=== PATIENT | male | born 1945 | race Caucasian/White ===

== ENCOUNTER 2016-09-04 14:01 | Inpatient (IN) | payer MEDICARE ==
[~2016-09-04] VITALS: Ht 180.3 cm; Wt 112.4 kg
[2016-09-07] MEDS ORDERED: ENAL20TA PO (09:44)
[2016-09-07] MEDS ORDERED: HYDR12.57 PO (09:46)
[2016-09-07] MEDS ORDERED: PRAD150C PO (14:38)
[2016-09-07] MEDS ORDERED: DILT120C7 PO (14:40)
[2016-09-23] MEDS ORDERED: GENTAMICIN SULFATE 80 MG/2 ML VIAL ONE (06:39)
[2016-09-23] MEDS ORDERED: VANCOMYCIN 1000 MG/NS 250 ML (for <70 kg) IV SCH ×2 (06:45)
[2016-09-23] MEDS ORDERED: INSULIN HUMAN REGULAR 1,000 UNITS/10 ML VIAL SQ PRN (06:45)
[2016-09-23] MEDS ORDERED: METOPROLOL TARTRATE 25 MG TAB PO PRN (06:45)
[2016-09-23] MEDS: POVIDONE IODINE 7.5% SCRUB 118 ML BOTTLE TOP SCH (06:45)
[2016-09-23 07:00] VITALS: BP 118/71; PULSE 66; RESP 16; TEMP 97.8; O2SAT 96
--- NOTE | 2016-09-23 07:01 | HHI.DCPOC ---
Discharge Care Plan Diagnosis: (1) Primary localized osteoarthrosis, lower leg (2) Status post total knee replacement, left Your Health Problems Are: Difficulty with ADL Goals to Promote Your Health * To prevent worsening of your condition and complications * To maintain your health at the optimal level Directions to Meet Your Goals Take your medications as prescribed Follow your dietary instruction Follow activity as directed Keep your appointments as scheduled Take your immunizations and boosters as scheduled If your symptoms worsen call your PCP, if no PCP go to Urgent Care Center or Emergency Room Smoking is Dangerous to Your Health. Avoid second hand smoke Call the 24-hour hour crisis hotline for domestic abuse at Reilly Pantoja Sep 23, 2016 07:00
--- NOTE | 2016-09-23 07:01 | HHI.FF ---
Face to Face Verification Diagnosis: (1) Primary localized osteoarthrosis, lower leg (2) Status post total knee replacement, left Physical Therapy Gait training, Transfer training, bed to chair Knee: Total knee Left LE Weight Bearing: WB as tolerated Left LE Range of Motion: Active ROM Nursing Nursing: Royce teaching, Dressing changes Dressing Changes: Daily dressing change I have seen patient Donavan Abdi on 09/23/16. My clinical findings support the need for the requested home health care services because: Limited ability to care for self High risk of falls I certify that my clinical findings support that this patient is homebound because: Post-op weakness Unsteady gait/balance Reilly Pantoja Sep 23, 2016 07:01
[2016-09-23] MEDS ORDERED: COMMODE 3-IN-11 MIS (07:03)
[2016-09-23] MEDS ORDERED: CPMMACHINE (07:03)
[2016-09-23] MEDS ORDERED: WALKER WHEELS/F1 MIS (07:03)
[2016-09-23] MEDS ORDERED: DEXAMETHASONE SOD PHOS 20 MG/5 ML VIAL IV SCH (07:30)
[2016-09-23] MEDS ORDERED: ceFAZolin 2 GM PREMIX 50 ML IV SCH (07:30)
[2016-09-23] MEDS ORDERED: MIDAZOLAM HCL 5 MG/5 ML VIAL ONE (07:43)
[2016-09-23] MEDS ORDERED: FAMOTIDINE 20 MG/2 ML VIAL ONE (07:43)
[2016-09-23] MEDS ORDERED: ROPIVACAINE PERI-ARTICULAR INJECTION. PERIART SCH ×5 (08:30)
[2016-09-23] MEDS ORDERED: LACTATED RINGER'S 1000 ML IV SCH (08:30)
[2016-09-23] MEDS ORDERED: SODIUM CHLORID 0.9% 500 ML IV SCH (08:30)
[2016-09-23] MEDS ORDERED: SODIUM CHLORIDE 0.9% IV SCH ×2 (08:30→11:15)
[2016-09-23] MEDS ORDERED: TRANEXAMIC ACID IV SCH ×2 (08:30→11:15)
[2016-09-23] MEDS ORDERED: HYDROCHLOROTHIAZIDE 25 MG TAB PO PRN (10:00)
--- NOTE | 2016-09-23 10:05 | PD.OP ---
cc: Elan Barbour MD Operative Report Date of Surgery: Sep 23, 2016 Preoperative Diagnosis: Left knee severe osteoarthritis Postoperative Diagnosis: Same Procedure: Left total knee arthroplasty Anesthesia: Gen. and adductor canal block Surgeon: Elan Barbour Lusterer(s): GARCIA Baxter The surgical procedure was assisted by my Advanced Registered Nurse Practitioner. My OIL LABORATORY ANALYST presence was necessary throughout this case for the manipulation and positioning of the surgical extremity. My OIL LABORATORY ANALYST was assisting me throughout the duration of this procedure. The skill set of an Advance Registered Nurse Practitioner was medically necessary to complete this procedure. During the surgical case, the regional vice president surgical sales was working at the back table and the Advance Registered Nurse Practitioner was directly assisting me. Operation and Findings: IMPLANTS: DePuy Attune: Patella: size 38. Femur, posterior stabilized size 8. Tibia, rotating platform size 7. Tibial insert, rotating platform, posterior stabilized size 5 mm thickness. ESTIMATED BLOOD LOSS: 150 cc TOURNIQUET TIME: 42 minutes at 250 mmHg pressure. JUSTIFICATION FOR PROCEDURE: The patient has end-stage osteoarthritis to the knee. There is an attached conservative measures pathway form in the chart that describes the nonoperative measures that were undertaken prior to consideration of surgical management. The patient understood the risks and benefits of surgical management. See my office notes for further details PROCEDURE: The patient was brought back to the operative theatre. Adequate anesthesia was obtained. The patient received intravenous vancomycin and Ancef. The lower extremity was prepped and draped in the usual sterile fashion.The leg was exsanguinated, the tourniquet was raised. A standard anterior incision was performed followed by medial parapatellar arthrotomy was performed. End-stage arthritis was identified. Osteotomy of the patella was performed. We drilled holes for the patella. We trialed the patella component. We placed an intramedullary guide into the distal femur. We ultimately resected 12 mm off of the distal femur in 5 degrees of valgus. The remnants of the ACL and PCL were resected. Osteotomy of the proximal tibia was performed, resecting 5 mm off of the medial side. This was done with 3 degrees of posterior slope using an extramedullary guide. The distal end of the guide was placed in the mid aspect of the ankle. The femur was sized, and four chamfer cuts were completed in 3 of external rotation. We then cut the central box in the distal femur to replace the PCL. We resected the remnants of the menisci and removed osteophytes off of the femur and tibia. We then trialed the knee. We punched the tibia for the keel, and then used standard technique to cement in components. Excess cement was removed. We trialed the knee again and the final polyethylene thickness was chosen to provide extension to 0 degrees, and flexion of 140 degrees to gravity. The ligaments were appropriately balanced. Lateral release was necessary to obtain excellent patellofemoral tracking. The tourniquet was released and adequate hemostasis was obtained. An intra- articular injection of a ropivacaine cocktail was injected. The posterior knee was inspected for excess cement, which was removed. The final polyethylene was put into position after thorough irrigation. We then closed deep fascia with a #2 Stratafix followed by skin with 2-0 Vicryl followed by nelly. Postop plan is to weight-bear as tolerated. DVT prophylaxis will be performed with Afua, CHRISTOPHER rivas, early mobilization, and Lovenox followed by aspirin. Elan Barbour MD Sep 23, 2016 10:05
[2016-09-23] MEDS ORDERED: ENOX40P SQ ×2 (10:09→10:17)
[2016-09-23] MEDS ORDERED: NORC5TAB PO (10:09)
[2016-09-23] MEDS ORDERED: ASPI325T PO (10:09)
[2016-09-23] MEDS ORDERED: ZOLPIDEM TARTRATE 5 MG TAB PO PRN (10:15)
[2016-09-23] MEDS ORDERED: MORPHINE SULFATE 4 MG/ML INJ IV PUSH PRN (10:15)
[2016-09-23] MEDS ORDERED: NALOXONE HCL 0.4 MG/ML AMP IV PRN (10:15)
[2016-09-23] MEDS ORDERED: diphenhydrAMINE HCL 50 MG/ML VIAL IV PRN (10:15)
[2016-09-23] MEDS ORDERED: BISACODYL 10 MG SUPP PR PRN (10:15)
[2016-09-23] MEDS ORDERED: ACETAMINOPHEN/HYDROcodone 325 MG/5 MG TAB PO PRN (10:15)
[2016-09-23] MEDS ORDERED: SODIUM CHLORIDE 0.9% FLUSH 5 ML FLUSH IVF PRN (10:15)
[2016-09-23] MEDS ORDERED: ALUMINUM/MAGNESIUM/SIMETH 30 ML CUP PO PRN (10:15)
[2016-09-23] MEDS ORDERED: MAGNESIUM HYDROXIDE SUSP 30 ML CUP PO SCH (10:15)
[2016-09-23] MEDS ORDERED: ONDANSETRON HCL 4 MG/2 ML VIAL IVP PRN (10:15)
[2016-09-23] MEDS ORDERED: DO NOT ADM ANY ANTICOAGULANT DRUGS XX PRN (10:25)
[2016-09-23] MEDS ORDERED: Post-op Orders (for Pharmacy) MISC XX ONE (10:25)
[2016-09-23] MEDS ORDERED: fentaNYL CITRATE 250 MCG/5 ML AMP ONE (10:34)
[2016-09-23] MEDS ORDERED: *morphine SULFATE 8 MG/ML PERIprocedure ONLY ONE ×2 (10:40→11:13)
[2016-09-23] MEDS: SODIUM CHLOR 0.9% 1000 ML INJ 1,000 ML IV SCH ×2 (10:50→20:01)
--- NOTE | 2016-09-23 11:26 | RADRPT ---
EXAM DATE/TIME: 09/23/2016 10:39 [facility] COMPARISON: No previous studies available for comparison. INDICATIONS : Post op left knee surgery. MEDICAL HISTORY : None. SURGICAL HISTORY : None. ENCOUNTER: Initial ACUITY: 1 day PAIN SCORE: Non-responsive. LOCATION: Left knee. FINDINGS: AP and crosstable lateral views of the left knee were obtained and demonstrate the patient is status post hemiarthroplasty. The femoral and tibial components are intact and in normal alignment. There ar e postoperative changes involving the patella. There is anterior soft tissue swelling and gas with ov erlying surgical skin nelly. CONCLUSION: Expected postoperative changes status post arthroplasty. Chele Costello MD on September 23, 2016 at 11:23 Board Certified Radiologist. This report was verified electronically.
[2016-09-23] MEDS ORDERED: NEOSTIGMINE 3 MG/3 ML SYR IV ONE (12:00)
[2016-09-23] MEDS ORDERED: LACTATED RINGER'S 1000 ML INJ 1,000 ML IV ONE (12:00)
[2016-09-23] MEDS ORDERED: PROPOFOL 200 MG/20 ML AMP IV ONE (12:00)
[2016-09-23] MEDS ORDERED: PHENYLEPH/NS 1000 MCG/10 ML SYR IV ONE (12:00)
[2016-09-23] MEDS ORDERED: ONDANSETRON HCL 4 MG/2 ML VIAL IV PUSH ONE (12:00)
[2016-09-23] MEDS ORDERED: ePHEDrine/NS 25 MG/5 ML SYR IV ONE (12:00)
[2016-09-23] MEDS ORDERED: BUPIVACAINE LIPOSOME PF 1.3% 20 ML VIAL ONE (12:04)
--- NOTE | 2016-09-23 16:40 | MB ---
cc: RONNELL MUNIZ,JAWJEMMA DATE OF CONSULTATION: 09/23/[address] Muniz. REASON FOR CONSULTATION Ulceration, medical management postoperatively. HISTORY OF PRESENT ILLNESS The patient is a very pleasant 71-year male with a significant past medical history of atrial fibrillation in the past, history of post ablation in April of 2016. The patient also has a history of multiple surgeries on both knees. The patient has a history of hypertension as well. The patient has arthritis for which he was taken care by his primary care doctor and orthopedic as an outpatient. The patient failed outpatient therapy and advised for surgery. The patient had a left total knee arthroplasty done today. Postoperatively the patient is seen in the PACU. The patient has no pain at present, just feeling some dry mouth. There is no headache, dizziness, nausea or vomiting. No chest pain or diaphoresis. There is no abdominal pain. The patient does not like the Ayers catheter. PAST MEDICAL HISTORY 1. Hypertension. 2. Atrial fibrillation status post ablation, was on Pradaxa. 3. Arthritis. MEDICATIONS Reviewed, please see MAR. ALLERGIES THE PATIENT HAS NO KNOWN DRUG ALLERGIES. REVIEW OF SYSTEMS As described in the History of Present Illness, otherwise negative for 10 systems. SOCIAL HISTORY The patient does not smoke. He drinks three glasses of wine and an occasional martini per week. Does not nunn any drugs. . FAMILY HISTORY Mother and sister of cancer. Mother of breast cancer, sister of pancreatic cancer, father of congestive heart failure. PHYSICAL EXAMINATION GENERAL: The patient is alert and oriented, well-built, well-nourished, lying on bed without any apparent distress. VITAL SIGNS: The patient is afebrile, pulse is 89, respiratory rate 17, blood pressure 144/79, pulse of 94% on 3 liters. HEENT: Head is atraumatic, normocephalic. Eyes, negative conjunctival icterus. Mouth unremarkable. NECK: Supple. No increased JVD. Central trachea. RESPIRATORY: Chest clear to auscultation. CARDIOVASCULAR: S1 and S2 audible. Unable to hear an S3 gallop. GASTROINTESTINAL: Abdomen soft. No organomegaly. Positive bowel sounds. MUSCULOSKELETAL: Extremities, no cyanosis or pedal edema appreciated. UNIT REACTOR OPERATOR: Alert, oriented. Normal facial features. Moving all his extremities. Normal speech. Moving left lower extremity toes as well. Normal sensation in bilateral toes. SKIN: Warm and dry. PSYCHIATRIC: Appropriate mood and affect. INVESTIGATIONS X-ray shows expected postoperative changes status post arthroplasty. ASSESSMENT 1. Left total knee arthroplasty secondary to left knee severe osteoarthritis. 2. Hypertension. 3. Status post ablation for atrial fibrillation last April, was on Pradaxa. Off Pradaxa six days prior to admission. RECOMMENDATIONS 1. Postop pain management. Physical therapy, antibiotic as per Dr. Muniz. 2. CBC, BMP in the morning. 3. We will restart Pradaxa once it is okay with Dr. Muniz. 4. Continue home medication including blood pressure medication. 5. Monitor blood pressure. 6. Discussed with the patient and at bedside. Thank you Dr. Muniz for the consult, we will follow with you. Marilu Paige MD JP/BJF /4:03 PM /4:11 PM
[2016-09-23 16:46] VITALS: BP 139/80; PULSE 90; RESP 16; TEMP 95.8; O2SAT 98
[2016-09-23] MEDS: ACETAMINOPHEN/HYDROcodone 325 MG/5 MG TAB PO PRN ×2 (18:53→22:50)
[2016-09-23 20:00] VITALS: BP 128/73; PULSE 98; RESP 16; TEMP 96.8; O2SAT 96
[2016-09-23] MEDS ORDERED: DILTIAZEM-CD 120 MG CAP ER PO SCH (21:00)
[2016-09-23 22:11] VITALS: O2SAT 98
[2016-09-23] MEDS: SODIUM CHLORIDE 0.9% FLUSH 5 ML FLUSH IVF SCH (22:53)
[2016-09-24] VITALS: BP 121/66; PULSE 96; RESP 17; TEMP 97.5; O2SAT 96
[2016-09-24 04:00] VITALS: BP 123/66; PULSE 86; RESP 16; TEMP 97.9; O2SAT 96
[2016-09-24] MEDS: ACETAMINOPHEN/HYDROcodone 325 MG/5 MG TAB PO PRN ×2 (05:00→13:41)
[2016-09-24] MEDS: SODIUM CHLOR 0.9% 1000 ML INJ 1,000 ML IV SCH (06:01)
[2016-09-24] MEDS: POVIDONE IODINE 7.5% SCRUB 118 ML BOTTLE TOP SCH (06:45)
[2016-09-24 06:56] LABS: MEAN CELL VOLUME 90.4 FL (80.0-100.0); MEAN CORPUSCULAR HEMOGLOBIN 30.3 PG (27.0-34.0); MEAN CORPUSCULAR HGB CONC 33.5 % (32.0-36.0); PLATELET COUNT 174 TH/MM3 (150-450); RED BLOOD COUNT 4.09 MIL/MM3 (4.50-5.90); RED CELL DISTRIBUTION WIDTH 13.6 % (11.6-17.2); REVIEW FLAG FINAL; WHITE BLOOD COUNT 16.1 TH/MM3 (4.0-11.0)
[2016-09-24 07:36] LABS: POTASSIUM 4.2 MEQ/L (3.5-5.1)
[2016-09-24] MEDS ORDERED: DEXAMETHASONE SOD PHOS 20 MG/5 ML VIAL IV ONE (07:45)
[2016-09-24 08:00] VITALS: BP 133/76; PULSE 85; RESP 18; TEMP 98.3; O2SAT 94
[2016-09-24] MEDS ORDERED: ENALAPRIL MALEATE 10 MG TAB PO SCH (09:00)
[2016-09-24] MEDS: SODIUM CHLORIDE 0.9% FLUSH 5 ML FLUSH IVF SCH (09:02)
[2016-09-24] MEDS ORDERED: ENOXAPARIN SODIUM 40 MG/0.4 ML SYRINGE SQ SCH (09:30)
[2016-09-24 10:15] VITALS: O2SAT 98
--- NOTE | 2016-09-24 10:57 | HHI.PR ---
Subjective Remarks no chest pain no SOB, No BM , X 1 day, +gas Up in chair Appetite good. (Viridiana Skaggs) Objective Objective Results - Vital Signs Date Time Temp Pulse Resp B/P Pulse Ox O2 Delivery O2 Flow Rate FiO2 09/24/16 10:15 98 Nasal Cannula 21 09/24/16 08:00 98.3 85 18 133/76 94 09/24/16 04:00 97.9 86 16 123/66 96 09/24/16 00:00 97.5 96 17 121/66 96 09/23/16 22:11 98 09/23/16 20:00 96.8 98 16 128/73 96 09/23/16 16:46 95.8 90 16 139/80 98 09/23/16 15:30 97.7 89 17 144/79 94 Nasal Cannula 3 09/23/16 14:00 86 16 128/75 95 Nasal Cannula 3 09/23/16 12:30 97.5 85 14 147/82 98 Nasal Cannula 3 09/23/16 11:45 82 16 128/80 99 Nasal Cannula 2 09/23/16 11:30 81 16 132/79 99 Nasal Cannula 2 09/23/16 11:15 79 16 138/61 99 Nasal Cannula 2 09/23/16 11:00 79 16 131/76 99 Nasal Cannula 2 I/O 09/23/16 09/23/16 09/23/16 09/24/16 09/24/16 09/24/16 07:00 15:00 23:00 07:00 15:00 23:00 Intake Total 1470 ml 340 ml 240 ml Output Total 325 ml 500 ml 1300 ml Balance 1145 ml -160 ml -1060 ml Intake Oral 120 ml 340 ml 240 ml IV Total 250 ml Other 1100 ml Output Urine Total 225 ml 500 ml 1300 ml Estimated Blood Loss 100 ml # Bowel Movements 0 0 (Viridiana Skaggs) Result Diagram: 09/24/1651909/24/16 05 Other Results Last Impressions Knee X-Ray 09/23/16 1001 Signed Impressions: Service Date/Time: Friday, September 23, 2016 10:39 - CONCLUSION: Expected postoperative changes status post arthroplasty. Chele Costello MD Medications and IVs Active Medications Cefazolin Sodium/ Sodium Chloride (Ancef Inj/NS Inj) 100 ml @ 200 mls/hr Q6H IV Last administered on 09/24/16 01:05; Admin Dose 200 MLS/HR; Start 09/23/16 at 13:00; Stop 09/24/16 at 01:29; Status DC Dexamethasone Sodium Phosphate (Decadron Inj) 10 mg ONCE ONCE IV; Start at 07:45; Stop 09/24/16 at 07:46; Status DC Diltiazem HCl (Cardizem Cd) 120 mg HS PO Last administered on 09/23/16 22:49; Admin Dose 120 MG; Start 09/23/16 at 21:00 Docusate Sodium (Colace) 100 mg BID PO; Start 09/24/16 at 21:00 Enalapril Maleate (Vasotec) 20 mg DAILY PO Last administered on 09/24/16 09:01 ; Admin Dose 20 MG; Start 09/24/16 at 09:00 Enoxaparin Sodium 40 mg 40 mg Q24H SQ Last administered on 09/24/16 09:01; Admin Dose 40 MG; Start 09/24/16 at 09:30; Stop 10/03/16 at 09:31 IV Flush 2 ml 2 ml BID IVF Last administered on 09/24/16 09:02; Admin Dose 2 ML ; Start 09/23/16 at 21:00 Magnesium Hydroxide (Milk Of Magnesia Liq) 30 ml BID PO; Start 09/24/16 at 11:00 Morphine Sulfate (*morphine INJ PERIprocedure ONLY) 8 mg STK-MED ONCE .ROUTE Last administered on 09/23/16 11:13; Admin Dose 5 MG; Start 09/23/16 at 11:13; Stop 09/23/16 at 11:14; Status DC Multivitamins/ Minerals Therapeutic (Theragran M Tab) 1 tab BID PO; Start at 21:00; Stop 11/23/16 at 20:59 Sennosides (Senokot) 17.2 mg HS PO; Start 09/24/16 at 21:00 Tranexamic Acid/ Sodium Chloride (Cyklokapron Inj/ NS Inj) 110.35 ml @ 200 mls / hr UNSCH IV; Start 09/23/16 at 11:15; Stop 09/23/16 at 11:49; Status DC ( Viridiana Skaggs) ROS General: Weakness (generalized), Other (10 point ROS done positives include generalized weakness systems otherwise negative. Bowel regimen in place) Neuro/MS: Other (status post left total knee, soreness) (Viridiana Skaggs) Physical Exam Physical Exam PHYSICAL EXAMINATION GENERAL: This is a well-developed, well-nourished male who appears to be in no acute distress. He is alert and awake, responsive. HEAD: Normocephalic without any lesion or mass noted. Facial features appear symmetric. OROPHARYNGEAL: Oropharynx without erythema or edema. NECK: Supple. No nuchal rigidity or lymphadenopathy. Trachea midline without deviation. CARDIAC: Regular rhythm, regular rate, S1 and S2 are heard. Murmur none, no gallops or rubs. LUNGS: Clear to auscultation bilaterally. No wheeze, no rhonchi or rale. No use of accessory muscles on inspiration or expiration. ABDOMEN: Soft, nontender, no organomegaly or masses. Bowel sounds are heard in all four quadrants. No rebound. No guarding. EXTREMITIES: Trace pedal edema. Pulses equal bilateral. cyanosis. Left knee bandaged, minimal edema, lean dry and intact NEUROLOGICAL: Patient mood and affect appropriate. No focal deficit SKIN:Warm and moist Objective Remarks I'm doing very well (Viridiana Skaggs) A/P Assessment and Plan 1. Left total knee arthroplasty secondary to left knee severe osteoarthritis. 2. Hypertension. 3. Status post ablation for atrial fibrillation last April, was on Pradaxa. Off Pradaxa six days prior to admission. RECOMMENDATIONS 1. Postop pain management. Physical therapy, antibiotic as per Dr. Barbour. 2. CBC, BMP in the morning, evaluated WBC count 16.1. IV antibiotics 3 doses postop. Monitor. Afebrile. Anemia mild 12.4 3. Pradaxa restarted 4. Meds reconciled 5. Monitor blood pressure., Stable normal trends 6. Discussed with the patient and at bedside. Discussed bowel regimen. He has not been since hospital but we are first day postop. Discussed a laxative if patient feels like he needs it. Monitor until day 3 even at home for results Patient sitting up in chair. Educated discussed diet and pain management. Patient states that he may go home today afternoon, oriented will be in the a.m. Discussed With: Nurse, Family (patient and ), Other (Dr. Paige, patient seen on his behalf) (Viridiana Skaggs) Assessment and Plan Patient seen Evaluation done as above. Above note reviewed Plan of care discussed with SET ILLUSTRATOR Discussed with patient about follow-ups and labs. (Marilu Paige MD) Viridiana Skaggs Sep 24, 2016 10:56 Marilu Paige MD Sep 24, 2016 14:16
[2016-09-24] MEDS ORDERED: MAGNESIUM HYDROXIDE SUSP 30 ML CUP PO SCH (11:00)
--- NOTE | 2016-09-24 12:28 | PD.ORT.PN ---
Subjective Post Op Day #: 1 Subjective Remarks The patient is resting in bed using his CPM machine. Patient's at bedside. Patient wanting to go home today. Patient has voided and is ambulatory. Objective Vitals Vital Signs Date Time Temp Pulse Resp B/P Pulse Ox O2 Delivery O2 Flow Rate FiO2 09/24/16 10:15 98 Nasal Cannula 21 09/24/16 08:00 98.3 85 18 133/76 94 09/24/16 04:00 97.9 86 16 123/66 96 09/24/16 00:00 97.5 96 17 121/66 96 09/23/16 22:11 98 09/23/16 20:00 96.8 98 16 128/73 96 09/23/16 16:46 95.8 90 16 139/80 98 09/23/16 15:30 97.7 89 17 144/79 94 Nasal Cannula 3 09/23/16 14:00 86 16 128/75 95 Nasal Cannula 3 09/23/16 12:30 97.5 85 14 147/82 98 Nasal Cannula 3 I/O 09/23/16 09/23/16 09/23/16 09/24/16 09/24/16 09/24/16 07:00 15:00 23:00 07:00 15:00 23:00 Intake Total 1470 ml 340 ml 240 ml Output Total 325 ml 500 ml 1300 ml Balance 1145 ml -160 ml -1060 ml Intake Oral 120 ml 340 ml 240 ml IV Total 250 ml Other 1100 ml Output Urine Total 225 ml 500 ml 1300 ml Estimated Blood Loss 100 ml # Bowel Movements 0 0 Result Diagram: 09/24/16 0520 09/24/16 0520 Procedures Left TKA Objective Remarks The patient's dressings were changed today with scant serosanguineous drainage. Incisions are well approximated with surgical clips intact. No redness or s/ s of infection. EHL/TA/G intact. 2+ pedal pulse. No calf swelling or tenderness. Minimal lower extremity swelling. + SILT. Assessment & Plan Ortho Post Op Day #: 1 Problem List: Assessment and Plan POD #1: Left TKA 1. WBAT LLE 2. Lovenox for DVT prophylaxis 3. Ice to the left knee PRN 4. Patient stable for discharge home with home health today. Reilly Pantoja Sep 24, 2016 12:28
--- NOTE | 2016-09-24 18:14 | OTSOAPIP ---
TIME SESSION COMPLETED: PM TREATMENT TIME: 0 MINS. CHART REVIEWED. ATTEMPTED TO SEE FOR INITIAL EVALUATION AND PT HAD ALREADY BEEN DISCHARGED. Therapist: CHIP NETTLES OT/L Signature on file
[2016-09-24] MEDS ORDERED: SENNOSIDES 8.6 MG TAB PO SCH (21:00)
[2016-09-24] MEDS ORDERED: MULTIVITAMINS/MINERALS THERAPEUTIC TAB PO SCH (21:00)
[2016-09-24] MEDS ORDERED: DOCUSATE SODIUM 100 MG CAP PO SCH (21:00)
--- NOTE | 2016-09-28 17:22 | HHI.DS ---
Discharge Summary Admission Date Sep 23, 2016 at 05:45 Discharge Date: Sep 24, 2016 Admitting Diagnosis Primary localized OA, lower leg Status post total knee arthroplasty, left Diagnosis: (1) Primary localized osteoarthrosis, lower leg Diagnosis: Principal (2) Status post total knee replacement, left Diagnosis: Principal Procedures Left TKA Brief History This is a 71 year old male patient with severe OA of the left knee. CBC/BMP: 09/24/16 0520 09/24/16 0520 PE at Discharge The patient's dressings were changed today with scant serosanguineous drainage. Incisions are well approximated with surgical clips intact. No redness or s/ s of infection. EHL/TA/G intact. 2+ pedal pulse. No calf swelling or tenderness. Minimal lower extremity swelling. + SILT. Hospital Course The patient was admitted to the hospital for severe OA of the left knee to have a left TKA. The patient's surgery went well with no complications. The patient had a normal hospital stay and was discharged home with home health. The patient is WBAT on the LLE. The patient's incision is well approximated with surgical clips intact. The patient will f/u with Dr. Barbour in 10 days in the office. Pt Condition on Discharge: Stable Discharge Disposition: Disch w/ Home Health Serv Discharge Instructions Diet Instructions: As Tolerated, No Restrictions Activities You Can Perform: Weight Bearing as Ruben Activities to Avoid: Strenuous Activity Follow up Referrals: Orthopedics with Elan Barbour MD New Medications: Commode 3-in-1 (Commode 3-in-1) 1 Mis Mis 1 EA .ROUTE DIRECTED #1 Ref 0 EA CPM-Continuous Passive Motion Machine (CPM-Continuous Passive Motion Machine) 1 Ea Device 1 EA .ROUTE DIRECTED #1 Ref 0 EA Enoxaparin Inj (Lovenox Inj) 40 Mg/0.4 Ml Syr 40 MG SQ DAILY Start Pradaxa after Lovenox is completed. Blood Clot Prevention # 10 Ref 0 SYRINGE Hydrocodone-Acetaminophen ([place]) 5-325 mg Tab 1-2 TAB PO Q4H PRN PAIN #60 Ref 0 TAB Walker with Front Wheels (Walker with Front Wheels) 1 Mis Mis 1 EA .ROUTE DIRECTED #1 Ref 0 EA Continued Medications: Diltiazem ER 24 HR (Diltiazem ER 24 HR) 120 Mg Caper 120 MG PO HS Ref 0 CAP Enalapril (Enalapril) 20 Mg Tab 20 MG PO DAILY #30 Ref 0 TAB Hydrochlorothiazide (Hydrochlorothiazide) 12.5 Mg Cap 25 MG PO DAILY PRN HIGH BP #30 Ref 0 CAP Discontinued Medications: Dabigatran (Pradaxa) 150 Mg Cap 150 MG PO BID Blood Clot Prevention #60 Ref 0 CAP Reilly Pantoja Sep 28, 2016 17:22
== END 2016-09-24 15:15 | disposition home health service (06) | DRG 470 ==
LOC: HSDI 09-23 05:45 → EDUNIT# 09-23 08:30 → N06A 09-23 16:03
PROVIDERS: ADMIT Orthopaedic Surgery; ATTEND Orthopaedic Surgery
PROC: 3E0T3CZ (ICD-10-PCS; 2016-09-23)
PROC: 0SRD0J9 Replacement of Left Knee Joint with Synthetic Substitute, Cemented, Open Approach (ICD-10-PCS; principal; 2016-09-23 07:59)
DX: M17.12 Unilateral primary osteoarthritis, left knee (principal); I48.91 Unspecified atrial fibrillation; I10 Essential (primary) hypertension; Z80.3 Family history of malignant neoplasm of breast; Z80.0 Family history of malignant neoplasm of digestive organs; Z82.49 Family history of ischemic heart disease and other diseases of the circulatory system
CPT/HCPCS: 73560; 80048; 85027; 86850; 86900; 86901; 94150; C1776; C9290; J0171; J0690; J0735; J1100; J1580; J1650; J1885; J2250; J2270; J2370; J2405; J2710; J2795; J3010; J3370; J7030; J7050; J7120; L1830

== ENCOUNTER → 2016-09-07 | Outpatient (CLI) | payer MEDICARE ==
[~2016-09-07] MED LIST: ASPI325T PO; COMMODE 3-IN-11 MIS; CPMMACHINE; DABI1CAP3 PO; DILT-60 PO; DILT120C7 PO; ENAL20TA PO; ENOX40P SQ; HYDR12.57 PO; NORC5TAB PO; PRAD150C PO; WALKER WHEELS/F1 MIS
--- NOTE | 2016-09-07 09:57 | EKG ---
Date Performed: 09/07/2016 Time Performed: 09:33:15 PTAGE: 71 years EKG: Sinus rhythm NONSPECIFIC ST & T-WAVE ABNORMALITY ABNORMAL ECG NO PREVIOUS TRACING DOCTOR: Jayant Cooper Interpretating Date/Time 09/07/2016 09:55:38
[2016-09-07 10:19] LABS: AUTOMATED NEUTROPHIL # 4.2 TH/MM3 (1.8-7.7); BASOPHIL # 0.1 TH/MM3 (0-0.2); BASOPHIL % 0.8 % (0.0-2.0); EOSINOPHIL # 0.4 TH/MM3 (0-0.4); EOSINOPHIL % 6.1 % (0.0-4.0); HEMATOCRIT 45.9 % (39.0-51.0); HEMO FLAGS DIFF FINAL; LYMPH % 19.9 % (9.0-44.0); LYMPHOCYTE # 1.4 TH/MM3 (1.0-4.8); MEAN CELL VOLUME 90.3 FL (80.0-100.0); MEAN CORPUSCULAR HEMOGLOBIN 30.7 PG (27.0-34.0); MONO % 11.4 % (0.0-8.0); NEUT % 61.8 % (16.0-70.0); PLATELET COUNT 232 TH/MM3 (150-450); RED BLOOD COUNT 5.09 MIL/MM3 (4.50-5.90); RED CELL DISTRIBUTION WIDTH 14.1 % (11.6-17.2); WHITE BLOOD COUNT 6.8 TH/MM3 (4.0-11.0)
[2016-09-07 10:29] LABS: APTT (PATIENT) 30.9 SEC (24.3-30.1); PROTHROMBIN TIME - PATIENT 10.8 SEC (9.8-11.6)
[2016-09-07 10:39] LABS: ANION GAP 6 MEQ/L (5-15); AST (GOT) 17 U/L (15-37); BICARBONATE 27.9 MEQ/L (21.0-32.0); BLOOD UREA NITROGEN 16 MG/DL (7-18); CHLORIDE 106 MEQ/L (98-107); GLOMERULAR FILTRATION RATE 52 ML/MIN (>89); GLUCOSE,FASTING 88 MG/DL (74-99); POTASSIUM 4.5 MEQ/L (3.5-5.1); SODIUM (NA) 140 MEQ/L (136-145)
[2016-09-07 10:42] LABS: ALKALINE PHOSPHATASE 73 U/L (45-117); ALT (GPT) 29 U/L (12-78); TOTAL BILIRUBIN ADULT 0.4 MG/DL (0.2-1.0); WESTERGREN SEDIMENTATION RATE 2 mm/hr (0-20)
[2016-09-07 11:32] LABS: BLOOD, URINE NEG (NEG); GLUCOSE,URINE NEG (NEG); KETONE, URINE NEG (NEG); MUCUS URINE FEW /lpf (OCC); NITRITE,URINE NEG (NEG); URINE COLOR YELLOW (YELLW/STRAW)
[2016-09-07 11:33] LABS: COMMENT (UR) CULT NOT INDICATED; CULTURE IF INDICATED CULT NOT INDICATED
--- NOTE | 2016-09-07 12:31 | RADRPT ---
EXAM DATE/TIME: 09/07/2016 11:43 [facility] COMPARISON: No previous studies available for comparison. INDICATIONS : Evaluate for pneumonia,pneumothorax and communicable diseases. Pre-op knee surgery MEDICAL HISTORY : None. SURGICAL HISTORY : Eblation ENCOUNTER: Initial ACUITY: 1 day PAIN SCORE: 0/10 LOCATION: chest FINDINGS: PA and lateral views of the chest demonstrate the lungs to be symmetrically aerated without evidence of mass, infiltrate or effusion. The cardiomediastinal contours are unremarkable. Osseous structure s are intact. CONCLUSION: Normal examination. Feliz Sexton MD on September 07, 2016 at 12:30 Board Certified Radiologist. This report was verified electronically.
== END ==
LOC: CPRE 09:04
PROVIDERS: ATTEND Orthopaedic Surgery
DX: Z01.810 Encounter for preprocedural cardiovascular examination (principal); Z01.812 Encounter for preprocedural laboratory examination; Z01.811 Encounter for preprocedural respiratory examination; M79.609 Pain in unspecified limb; M17.12 Unilateral primary osteoarthritis, left knee; Z96.60 Presence of unspecified orthopedic joint implant
CPT/HCPCS: 36415; 71020; 80053; 81001; 85025; 85610; 85652; 85730; 93005

== ENCOUNTER 2018-06-08 05:31 | Inpatient (IN) ==
[2018-06-08] MEDS ORDERED: Dexamethasone Inj 20 MG/5 ML Vial IV.PUSH ONE ×2 (05:58→06:15)
[2018-06-08] MEDS ORDERED: Vancomycin Inj 1,000 MG in Sodium Chlor 0.9% Inj 250 ML IV.SIG SCH (06:00)
[2018-06-08] MEDS ORDERED: ceFAZolin 2 GM Premix Inj 2 GM/50 ML PIGGYBACK IV.SIG SCH (06:00)
[2018-06-08] MEDS ORDERED: Chlorhexidine 4% Topical 120 APPLIC/120 ML Bottle TOPICAL SCH (06:00)
[2018-06-08] MEDS ORDERED: Chlorhexidine Gluconate 2% 1 Pack (2 Cloths) TOPICAL ONE (06:05)
[2018-06-08] MEDS ORDERED: Metoprolol Tartrate 25 MG Tablet PO ONE (06:05)
[2018-06-08] MEDS ORDERED: Sodium Chlor 0.9% Inj 500 ML IV.SIG SCH (07:00)
[2018-06-08] MEDS ORDERED: Bupivacaine Liposomal PF 1.3% Inj 20 ML Vial ONE (07:15)
[2018-06-08] MEDS ORDERED: Bupivacaine PF 0.25% Inj 30 ML Vial ONE (07:16)
[2018-06-08] MEDS ORDERED: Neostigmine Inj 5 MG/5 ML Syringe IV.PUSH ONE (08:25)
[2018-06-08] MEDS ORDERED: Glycopyrrolate Inj 1 MG/5 ML Syringe IV.PUSH ONE (08:25)
[2018-06-08] MEDS ORDERED: Lidocaine PF 1% Inj 5 ML Syringe OTHER ONE (08:25)
[2018-06-08] MEDS ORDERED: SODIUM CHLOR 0.9% IV.SIG SCH ×2 (08:30→12:00)
[2018-06-08] MEDS ORDERED: TRANEXAMIC ACID IV.SIG SCH ×2 (08:30→12:00)
[2018-06-08] MEDS ORDERED: Sodium Chlor 0.9% Inj 73.07 ML, Ropivacaine 0.5% PF Inj 24.63 ML, Ketorolac Inj 30 MG, ... P-ARTICULR SCH ×5 (08:30)
[2018-06-08] MEDS ORDERED: Post-op Orders (for Pharmacy) OTHER STA (10:17)
[2018-06-08] MEDS ORDERED: Bisacodyl 10 MG Supp RECTAL PRN (10:17)
[2018-06-08] MEDS ORDERED: Morphine Sulfate Inj 2 MG/ML Vial IV.PUSH PRN (10:17)
[2018-06-08] MEDS ORDERED: Aluminum/Magnesium/Simethacone Susp 30 ML UDC PO PRN (10:17)
[2018-06-08] MEDS ORDERED: Morphine Inj 4 MG/ML Vial ONE (10:18)
[2018-06-08] MEDS ORDERED: fentaNYL Citrate Inj 100 MCG/2 ML Ampul ONE (10:18)
--- NOTE | 2018-06-08 10:24 | P.OP ---
- Preoperative Diagnosis (1) Primary localized osteoarthritis of right knee - Postoperative Diagnosis (1) Primary localized osteoarthritis of right knee Date of procedure: 06/08/18 Procedure: Right total knee arthroplasty. Right knee removal of ACL reconstruction screws Anesthesia: JESSICAA, [facility] Surgeon: Elan Barbour MD Supervisor [employer]: GARCIA Baxter The surgical procedure was assisted by my Advanced Registered Nurse Practitioner. My GEOTHERMAL POWERPLANT SUPERVISOR presence was necessary throughout this case for the manipulation and positioning of the surgical extremity. My GEOTHERMAL POWERPLANT SUPERVISOR was assisting me throughout the duration of this procedure. The skill set of an Advance Registered Nurse Practitioner was medically necessary to complete this procedure. During the surgical case, the extractions technologist was working at the back table and the Advance Registered Nurse Practitioner was directly assisting me. Operation and Findings: IMPLANTS: DePuy Attune: Patella: size 38. Femur, posterior stabilized size 8. Tibia, rotating platform size 8. Tibial insert, rotating platform, posterior stabilized size 7 mm thickness. ESTIMATED BLOOD LOSS: 150 cc TOURNIQUET TIME: 47 minutes at 250 mmHg pressure. JUSTIFICATION FOR PROCEDURE: The patient has end-stage osteoarthritis to the knee. There is an attached conservative measures pathway form in the chart that describes the nonoperative measures that were undertaken prior to consideration of surgical management. The patient understood the risks and benefits of surgical management. See my office notes for further details PROCEDURE: The patient was brought back to the operative theatre. Adequate anesthesia was obtained. The patient received intravenous vancomycin and Ancef. The lower extremity was prepped and draped in the usual sterile fashion.The leg was exsanguinated, the tourniquet was raised. A standard anterior incision was performed followed by medial parapatellar arthrotomy was performed. End-stage arthritis was identified. Osteotomy of the patella was performed. We drilled holes for the patella. We trialed the patella component. We placed an intramedullary guide into the distal femur. We ultimately resected 14 mm off of the distal femur in 5 degrees of valgus. The remnants of the ACL and PCL were resected. We removed the tibial ACL metal screw which had excellent purchase and no signs of infection. Osteotomy of the proximal tibia was performed, resecting 6 mm off of the medial side. This was done with 3 degrees of posterior slope using an extramedullary guide. The distal end of the guide was placed in the mid aspect of the ankle. The femur was sized, and four chamfer cuts were completed in 3 of external rotation. We then cut the central box in the distal femur to replace the PCL. This exposed the femoral screw which was still intact but did not have as excellent purchase in the bone. We removed it. There was some Ethibond suture that was noted in this region that had a little bit of fluid surrounding it but no definitive signs of infection. We resected the remnants of the menisci and removed osteophytes off of the femur and tibia. We then trialed the knee. We punched the tibia for the keel, and then used standard technique to cement in components. Excess cement was removed. We trialed the knee again and the final polyethylene thickness was chosen to provide extension to 0 degrees, and flexion of 140 degrees to gravity. The ligaments were appropriately balanced. Lateral release was necessary to obtain excellent patellofemoral tracking. The tourniquet was released and adequate hemostasis was obtained. An intra- articular injection of a ropivacaine cocktail was injected. The posterior knee was inspected for excess cement, which was removed. The final polyethylene was put into position after thorough irrigation. We then closed deep fascia with a #2 Stratafix followed by skin with 2-0 Vicryl followed by Dermabond dressing. Postop plan is to weight-bear as tolerated. DVT prophylaxis will be performed with SCDs, CHRISTOPHER rivas, early mobilization, and Lovenox followed by resumption of Pradaxa.
[2018-06-08] MEDS ORDERED: *morphine SULFATE 4 MG/ML PERIprocedure ONLY ONE ×2 (10:56→11:30)
[2018-06-08] MEDS: Sod Chloride 0.9% Inj 1,000 ML IV.CONT SCH (11:10)
--- NOTE | 2018-06-08 11:13 | XR ---
EXAM DATE: 06/08/2018 11:10 AM EDT AGE/SEX: 73 years / Male INDICATIONS: Post op right total knee. CLINICAL DATA: This is the patient's initial encounter. Patient reports that signs and symptoms have been present for 1 day and indicates a pain score of 0/10. MEDICAL/SURGICAL HISTORY: None. None. COMPARISON: No prior exams available for comparison. FINDINGS: AP and lateral views of the knee following arthroplasty reveals a prosthesis in anatomic alignment. F racture is not appreciated. Moderate air is present in the joint space. CONCLUSION: Status post total knee arthroplasty. Abner Brown MD FACR Electronically signed by: Abner Brown MD 06/08/2018 11:11 AM EDT
[2018-06-08] MEDS: ceFAZolin 1 GM Premix Inj 1 GM/50 ML FROZ.PIGGY IV.SIG SCH ×2 (14:20→21:20)
--- NOTE | 2018-06-08 16:14 | P.DCO ---
- Physical Therapy Physical Therapy: Gait training, Transfer training, bed to chair Knee: Total knee Right Lower Extremity Weight Bearing: Weight bearing as tolerated Right Lower Extremity Range of Motion: Active ROM - Nursing Nursing: Royce graves Dressing changes: Do not change dressing Additional instructions: First dressing change in the office - Certification Need for Home Health services: I have seen patient Donavan Abdi on 06/08/18. My clinical findings support the need for the requested home health care services because: Need for Home Health Services: Limited ability to care for self, High risk of falls Homebound Certification: I certify that my clinical findings support that this patient is homebound because: Homebound Certification: Post-op weakness, Unsteady gait/balance
[2018-06-08] MEDS ORDERED: Zolpidem Tartrate 5 MG Tablet PO PRN (21:00)
[2018-06-08] MEDS ORDERED: dilTIAZem CD 120 MG Capsule PO SCH (21:00)
[2018-06-08] MEDS: Senna/Docusate Sodium 8.6/50 MG Tablet PO SCH (21:04)
[2018-06-08] MEDS: Multivitamin/Minerals Therapeutic Tablet PO SCH (21:04)
[2018-06-09] MEDS: ceFAZolin 1 GM Premix Inj 1 GM/50 ML FROZ.PIGGY IV.SIG SCH (01:02)
[2018-06-09] MEDS: Sod Chloride 0.9% Inj 1,000 ML IV.CONT SCH (01:43)
[2018-06-09 06:57] LABS: Hematocrit 36.4 % (39.0-51.0); Hemoglobin 12.5 gm/dL (13.0-17.0)
--- NOTE | 2018-06-09 07:40 | P.PNOP ---
Subjective Interval history: The patient is resting comfortably in bed with minimal pain to the right knee. The patient states he does want to be discharged home with home health today. Physical Exam Vital signs: Vital Signs 06/08/18 10:47 06/08/18 11:00 06/08/18 11:15 Temperature 97.2 F L Pulse Rate 78 74 67 Respiratory Rate 17 15 15 Blood Pressure 131/73 117/59 L 113/59 L Pulse Oximetry 95 96 98 06/08/18 11:30 06/08/18 11:42 06/08/18 11:45 Temperature Pulse Rate 75 69 Respiratory Rate 14 12 12 Blood Pressure 119/59 L 121/59 L Pulse Oximetry 98 06/08/18 12:00 06/08/18 13:00 06/08/18 17:26 Temperature 98.0 F 98 F Pulse Rate 72 67 78 Respiratory Rate 14 12 18 Blood Pressure 121/61 129/63 130/63 Pulse Oximetry 99 95 94 L 06/08/18 20:00 06/09/18 00:00 06/09/18 02:00 Temperature 97.5 F L 98.0 F Pulse Rate 87 94 H Respiratory Rate 18 18 17 Blood Pressure 130/67 120/61 Pulse Oximetry 97 97 06/09/18 04:00 Temperature 97.9 F Pulse Rate 84 Respiratory Rate 18 Blood Pressure 118/61 Pulse Oximetry 98 Intake & Output 06/08/18 06/09/18 06/09/18 18:59 06:59 18:59 Intake Total 1391.59 / 1391.59 100 / 100 Output Total 225 / 225 850 / 850 Balance 1166.59 / 1166.59 -750 / -750 Weight 106.9 kg 110.4 kg Intake: IV 1171.59 / 1171.59 100 / 100 LR 1000 mL Inj 1,000 ML @ 30 600 / 600 mls/hr IV.SIG .Q24H TOM Rx#: [id number] Cyklokapron Inj 1,069 MG In NS 221.59 / 221.59 Inj 100 ML @ 200 mls/hr IV.SIG KOSHER INSPECTOR TOM Rx#:[id number] Vancomycin Inj 1,000 MG In NS 250 / 250 Inj 250 ML @ 250 mls/hr IV.SIG KOSHER INSPECTOR TOM Rx#:[id number] Ancef 1 GM Premix Inj 1 gm In 50 / 50 100 / 100 50 ml @ 100 mls/hr IV.SIG Q6H TOM Rx#:[id number] Ancef 2 GM Premix Inj 2 gm In 50 / 50 50 ml @ 100 mls/hr IV.SIG KOSHER INSPECTOR TOM Rx#:[id number] Oral 220 / 220 Output: Urine 75 / 75 850 / 850 Estimated Blood Loss 150 / 150 Other: # Voids 1 Date of Last Bowel Movement 06/07/18 Narrative: The patient's dressing is clean, dry, and intact. EHL/TA/G are intact. 2+ pedal pulse. The patient's calf is soft and nontender. Sensation is intact to light touch distally. Results - Labs CBC & Chem 7: 06/09/18 05:02 Laboratory Results - last 24 hr 06/08/18 06/09/18 06:40 05:02 Hgb 12.5 L Hct 36.4 L Blood Type O Positive Antibody Screen Negative - Imaging Impressions Knee X-Ray 06/08/18 10:17 CONCLUSION: Status post total knee arthroplasty. Abner Brown MD FACR - Procedures Right total knee arthroplasty Assessment and Plan - Problem List (1) Status post total knee replacement, right Code(s): Z96.651 - Presence of right artificial knee joint Status: Acute (2) Primary localized osteoarthritis of right knee Code(s): M17.11 - Unilateral primary osteoarthritis, right knee Status: Acute - Assessment and Plan POD #1: [Right] total knee arthroplasty 1. Weightbearing as tolerated on [right] lower extremity. 2. Lovenox followed by resumption of Pradaxa for DVT prophylaxis. 3. Ice as needed for swelling. 4. Stable per ortho for discharge to home health today. 5. The patient will follow up with Dr. Barbour and/or GARCIA Sandoval as previously scheduled.
[2018-06-09] MEDS ORDERED: Dexamethasone Inj 20 MG/5 ML Vial IV.PUSH ONE (08:00)
[2018-06-09] MEDS: Multivitamin/Minerals Therapeutic Tablet PO SCH (08:10)
[2018-06-09] MEDS: Senna/Docusate Sodium 8.6/50 MG Tablet PO SCH (08:10)
[2018-06-09] MEDS ORDERED: Influenza (Quadrivalent) Vaccine 0.5 ML Syringe IM ONE (08:30)
[2018-06-09] MEDS ORDERED: Enoxaparin Inj 40 MG/0.4 ML Syringe SQ SCH (10:00)
--- NOTE | 2018-06-10 16:45 | P.DS ---
Date of admission: 06/08/18 05:31 Primary care physician: Torin Hewitt MD Attending physician on discharge: Elan Barbour Anticipated date of discharge: 06/09/18 Brief History from admission: The patient was admitted to the hospital for severe right knee osteoarthritis to have a right TKA DS: Diagnosis - Discharge Diagnosis (1) Status post total knee replacement, right Status: Acute (2) Primary localized osteoarthritis of right knee Status: Acute DS: Summary Hospital Course: The patient was admitted to the hospital for severe osteoarthritis of the [right ] knee to have a [right] total knee arthroplasty. The patient's surgery went well with no complication. The patient is on a [regular] diet. The patient's DVT prophylaxis includes use of [Lovenox followed by resumption of Pradaxa]. The patient is weightbearing as tolerated. The patient was discharged [home with home health] and will follow up in the office with Dr. Barbour and/or GARCIA Sandoval as previously scheduled. - Time Spent with Patient Total time spent providing and/or coordinating discharge services: Greater than 30 minutes - Quality: VTE Deep Vein Thrombosis/Pulmonary Embolism Present on Admission: No Exam Vital signs: Intake & Output 06/09/18 06/10/18 06/10/18 18:59 06:59 18:59 Other: Date of Last Bowel Movement 06/07/18 Narrative: The patient's dressing is clean, dry, and intact. EHL/TA/G are intact. 2+ pedal pulse. The patient's calf is soft and nontender. Sensation is intact to light touch distally. Results Procedures completed during hospitalization: Right total knee arthroplasty - Impressions ITS Impressions Knee X-Ray 06/08/18 10:17 CONCLUSION: Status post total knee arthroplasty. Abner Brown MD FACR Discharge Plan - Discharge Disposition Patient Disposition: Disch W/Home Health Service - Discharge Condition Condition: Stable - Discharge Order Discharge Orders: Discharge Order (Routine); Ordered 06/08/18 Ordered By: Reilly Pantoja - Discharge Details Anticipated Discharge Date: 06/09/18 - Physicians Team Primary Care Provider: Torin Hewitt Attending Provider: Elan Barbour Other Providers: ; Nurse Oncall,Agency - Rxs /Orders / Referrals /Forms Prescriptions: Continue diltiazem HCl 120 mg Capsule,Extended Release 24 Hr 120 mg PO HS enalapril maleate 20 mg Tablet 20 mg PO DAILY Discontinued dabigatran etexilate [Pradaxa] 150 mg Capsule 150 mg PO BID Ambulatory Orders / Order Sets / DME: Adjustable Commode 3-in-1 (1 each) (Routine) Location: Determined by Patient Ordered By: Reilly Pantoja CPM - Continuous Passive Motion Machine (1 each) (Routine) Location: Determined by Patient Ordered By: Reilly Pantoja Walker With Front Wheels (1 each) (Routine) Location: Determined by Patient Ordered By: Reilly Pantoja Referrals: Elan Barbour MD [Physician] - See Instructions (F/U in the office as previously scheduled with Dr. Barbour or Max Pantoja, ANTONIO) Torin Hewitt MD [Primary Care Provider] - See Instructions - Discharge Instructions Patient Printed Instructions: How to Choose and Use a Walker (GEN), Continuous Passive Motion Machine (DC), Knee Replacement (DC) Additional Instructions: REGULAR DIET TOLERATED WEIGHT BEARING TOLERATED TO THE RIGHT LEG KEEP DRESSING CLEAN, DRY, AND INTACT SHOWER ONLY TAKE MEDICATION PRESCRIBED FOLLOW UP WITH MD INSTRUCTED - Post Discharge Care Plan Care Plan Goals: Discharge Care Plan Goals for Total Knee Replacement You have undergone knee replacement surgery. Your doctor replaced your painful joint with an artificial joint to relieve pain and restore movement. Here are some goals to help you heal well. Directions to Meet your Goals: 1. Activity & Exercises: * Take pain medicine as directed by your doctor. * Sit in chairs with arms. The arms make it easier for you to stand up or sit down. * Dont sit for more than 30 to 45 minutes at one time. * Nap if you are tired, but dont stay in bed all day. * Sleep with a pillow under your ankle, not your knee. Be sure to change the position of your leg during the night. * Wear the support stockings you were given in the hospital as directed by your surgeon. 2. Prevent Falls/Injury: The ferrari to successful recovery is movement with walking and exercising your knee as directed by your doctor. * Arrange your household to keep the items you need handy. Keep everything else out of the way. * Remove items that may cause you to fall, such as throw rugs and electrical cords. * Use nonslip bath mats, grab bars, an elevated toilet seat, and a shower chair in your bathroom * Sit on a shower stool or chair when you shower to keep from falling. * Until your balance, flexibility, and strength improve, use a cane, crutches, a walker, handrails, or someone to help you. * Keep your hands free by using a backpack, germaine pack, apron, or pockets to carry things * Walk up and down stairs with support. Try one step at a time. Use the railing if possible. * Dont drive until your doctor says its OK. * Dont drive while you are taking opioid pain medicine. 3. Precautions: * Prevent infection. Any infection will need to be treated immediately. Call your doctor right away if you think you might have an infection. * Tell your dentist that you have an artificial joint and take antibiotics as prescribed before any dental work. * Tell all your healthcare providers about your artificial joint before any medical procedure. * Maintain a healthy weight. Get help to lose any extra pounds. Added body weight puts stress on the knee. * Your medications may include blood-thinning medicine to prevent blood clots or antibiotics to prevent infection-prevent any falls or cuts 4. Incision Care: * Prevent infection by washing your hands often. If an infection occurs, it will need to be treated right away. * Call your doctor right away if you think you may have an infection. Symptoms include a fever or an incision that leaks white, green, or yellow fluid. * Don't soak your incision in water until your doctor says its OK. This means no hot tubs, bathtubs, or swimming pools. * Follow your doctor's instructions for changing the dressing. * Dont rub the incision, or apply creams or lotions to it. * If you notice any redness or drainage around the bandage site, contact your surgeon's office immediately. 5. Follow-Up: Do Not miss your follow-up appointment. Keep up with all your appointments and yearly check ups When to call your doctor: Call your doctor right away if you have: Fever of 100.4F (38C) or higher, or as directed by your doctor Shaking chills Stiffness, or inability to move the knee Increased swelling in your leg Increased redness, tenderness, or swelling in or around the knee incision Drainage from the knee incision Increased knee pain Call 911: Call 911 right away if you have: Chest pain Shortness of breath Any pain or tenderness in your calf
== END 2018-06-09 10:45 | disposition home health service (06) ==
LOC: HSDI 05:31 → N06 16:58
PROVIDERS: ADMIT Orthopaedic Surgery; ATTEND Orthopaedic Surgery